=== PATIENT | female | born 1985 | race Caucasian/White ===

== ENCOUNTER 2024-05-08 12:46 | Outpatient (CLI) | payer MEDICAID | END 2024-05-08 23:59 | disposition home or self-care (01) | LOC: MRI 12:46 | PROVIDERS: ATTEND Neuromusculoskeletal Medicine & OMM | DX: M47.812 Spondylosis without myelopathy or radiculopathy, cervical region (principal); M50.323 Other cervical disc degeneration at C6-C7 level; M25.78 Osteophyte, vertebrae; M50.30 Other cervical disc degeneration, unspecified cervical region; R29.898 Other symptoms and signs involving the musculoskeletal system | CPT/HCPCS: 72141 ==

== ENCOUNTER 2024-11-04 10:02 | Outpatient (CLI) | payer MEDICAID | END 2024-11-04 23:59 | disposition home or self-care (01) | LOC: MRI02 10:02 | PROVIDERS: ATTEND Neuromusculoskeletal Medicine & OMM | DX: R40.4 Transient alteration of awareness (principal) | CPT/HCPCS: 70551 ==